=== PATIENT | female | born 1980 | race Caucasian/White ===

== ENCOUNTER 2020-01-16 09:31 | Emergency (ER) | payer SELFPAY ==
[~2020-01-16] VITALS: Ht 175.3 cm; Wt 65.8 kg
--- NOTE | 2020-01-16 10:01 | Emergency Department Note ---
History of Present Illnes History of Present Illness Chief Complaint: General Medicine Complaints History of Present Illness This is a 39 year old female to the ED with complaints of 3 days of cough sore throat shortness of breath. . Chief Complaint Comment PATIENT IN FROM HOME WITH COMPLAINTS OF SORE THROAT X 3 DAYS AND COUGH; DENIES FEVER OR SHORTNESS OF BREATH. O2 SATS 100% ON ROOM AIR, RATES PAIN 7/10, APPEARS IN NO DISTRESS Historian: Patient Arrival Mode: Car Onset (how long ago): day(s) Severity: mild Duration (how long): day(s) Timing of current episode: constant Chronicity: new Relieving factors: none Exacerbating factors: none Past Medical/Family History Physician Review I have reviewed the patient's past medical and family history. Any updates have been documented here. Past Medical History Recent Fever: No Clinical Suspicion of Infectio: No New/Unexplained Change in Ment: No Past Medical History: None Past Surgical History: None Social History Physically hurt or threatened: No Review of Systems Review of Systems Constitutional: Reports no symptoms EENTM: Reports no symptoms Cardiovascular: Reports no symptoms Respiratory: Reports no symptoms Gastrointestinal: Reports no symptoms Genitourinary: Reports no symptoms Musculoskeletal: Reports no symptoms Integumentary: Reports no symptoms Neurological: Reports no symptoms Psychological: Reports no symptoms Endocrine: Reports no symptoms Hematological/Lymphatic: Reports no symptoms Physical Exam Related Data Allergies: Coded Allergies: No Known Allergies (Unverified , 01/16/20) Triage Vital Signs Vital Signs Date Time Temp Pulse Resp B/P (MAP) Pulse Ox O2 Delivery O2 Flow Rate FiO2 01/16/20 09:47 98.4 65 20 114/75 100 Room Air Vital signs reviewed: Yes Physical Exam CONSTITUTIONAL Constitutional: Present well-developed, Present well-nourished HENT HENT: Present normocephalic, Present atraumatic, Present oropharynx clear/moist, Present oropharynx normal, Present nose normal; Absent oropharyngeal exudate, Absent pharynx abnormal, Absent erythema HENT L/R: Present left ext ear normal, Present right ext ear normal EYES Eyes: Reports PERRL, Reports conjunctivae normal NECK Neck: Present ROM normal PULMONARY Pulmonary: Present effort normal, Present breath sounds normal CARDIOVASCULAR Cardiovascular: Present regular rhythm, Present heart sounds normal, Present capillary refill normal, Present normal rate GASTROINTESTINAL Abdominal: Present soft, Present nontender, Present bowel sounds normal GENITOURINARY Genitourinary: Present exam deferred SKIN Skin: Present warm, Present dry MUSCULOSKELETAL Musculoskeletal: Present ROM normal NEUROLOGICAL Neurological: Present alert, Present oriented x 3, Present no gross motor or sensory deficits PSYCHOLOGICAL Psychological: Present mood/affect normal, Present judgement normal Assessment & Plan Medical Decision Making MDM No history of immunocompromise. Nontoxic appearance. Patient euvolemic with no trismus. No airway compromise. Able to tolerate PO. Given History and Exam I have low suspicion for this presentation being caused by ROOF DESIGNER, RPA, Ludwigs, Epiglottitis or Bacterial Tracheitis, EBV, acute HIV, Strep throat. Rx: Patient discharged doxycycline 100 mg by mouth twice a day Disposition: Discharge home with prompt outpatient PCP follow up; return precautions discussed. HPI Denies cough. No measured fevers. No steroid use or immunosuppressive state. No pus from mouth. Tolerating secretions. Otherwise well with no changes to vision, no dysphonia, no dysphagia. Assessment & Plan Final Impression: (1) Strep pharyngitis Depart Disposition: HOME, SELF-CARE Last Vital Signs Date Time Temp Pulse Resp B/P (MAP) Pulse Ox O2 Delivery O2 Flow Rate FiO2 01/16/20 09:47 98.4 65 20 114/75 100 Room Air Home Meds Active Scripts Acetaminophen/Codeine* (TYLENOL # 3*) 1 Ea Tab, 1 TAB PO Q8HR PRN for COUGH, #12 Prov:CONCHA ULRICH DO 01/16/20 Prednisone (PREDNISONE) 20 Mg Tab, 40 MG PO DAILY, #5 TAB Prov:CONCHA ULRICH DO 01/16/20 Doxycycline Hyclate (DOXYCYCLINE HYCLATE) 100 Mg Capsule, 100 MG PO BID, #20 CAP Prov:CONCHA ULRICH DO 01/16/20 CONCHA ULRICH DO Jan 16, 2020 10:01
[2020-01-16] MEDS ORDERED: PREDNISONE20 MG PO (10:12)
[2020-01-16] MEDS ORDERED: TYLENOL # 31 EA PO (10:12)
[2020-01-16] MEDS ORDERED: DOXYCYCLINE HY100 MG PO (10:12)
--- OUTSIDE RECORDS SUMMARY | 2020-01-16 10:37 | XMS REPORT | Clinical Summary ---
Author Author [facility] Address Unknown Phone Unavailable Care Team Providers Care Commissioning Editor Name Role Phone Asked, No Pcp PCP Unavailable Allergies No Known Active Allergies Medications Not on file Active Problems Not on file Social History Date Tobacco Use Types Packs/Day Years Used Never Assessed Sex Assigned at Date Recorded Not on file Last Filed Vital Signs Not on file Plan of Treatment Not on file Results Not on fileafter 01/15/2019 Insurance Type Payer Benefit Subscriber ID Effective Phone Address Plan / Dates Group [facility] - [id number] [facility] Advance Directives For more information, please contact: [phone] Patient Filling Machine Tender Explanation Type Date Recorded Advance Directives, 06/17/2018 9:32 PM Living Will 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
== END 2020-01-16 10:22 | disposition home or self-care (01) ==
LOC: ER 10:22
DX: J02.0 Streptococcal pharyngitis (principal); R05 Cough; R06.02 Shortness of breath
CPT/HCPCS: 99283

== ENCOUNTER 2020-08-04 15:37 | Emergency (ER) | payer SELFPAY ==
[~2020-08-04] VITALS: Ht 175.3 cm; Wt 72.6 kg
[~2020-08-04 15:37] MED LIST: DOXYCYCLINE HY100 MG PO; PREDNISONE20 MG PO; TYLENOL # 31 EA PO
[2020-08-04] MEDS ORDERED: PANTOPRAZOLE 40 MG 10ML VIAL IV STA (16:17)
[2020-08-04] MEDS ORDERED: FAMOTIDINE 20 MG/2 ML VIAL IV STA (16:17)
[2020-08-04] MEDS ORDERED: ONDANSETRON HCL INJ 2MG/ML 2ML 2 MG/ML VIAL IV STA (16:17)
[2020-08-04] MEDS ORDERED: SODIUM CHLORIDE 0.9% 1000ML 1,000 ML IV ONE (16:30)
[2020-08-04 16:31] LABS: BASOPHILS % 0.6 % (0.0-1.0); EOSINOPHILS # (AUTO) 0.2 (0.0-0.4); EOSINOPHILS % 4.6 % (0.0-6.0); HEMATOCRIT 41.5 % (34.2-44.1); HEMOGLOBIN 13.9 g/dL (12.0-16.0); LYMPHOCYTES # (AUTO) 0.5 (1.0-3.2); LYMPHOCYTES % 10.8 % (18.0-39.1); MEAN CORPUSCULAR HEMOGLOBIN 30.2 pg (28-32); MEAN CORPUSCULAR HGB CONC 33.5 g/dL (31-35); MONOCYTES # (AUTO) 0.2 (0.2-0.8); MONOCYTES % 4.8 % (4.4-11.3); NEUTROPHILS # (AUTO) 3.9 (2.1-6.9); NEUTROPHILS % 78.6 % (38.7-80.0); PLATELET COUNT 179 x10e3/uL (140-360); RED BLOOD COUNT 4.61 x10e6/uL (3.6-5.1)
[2020-08-04 16:57] LABS: ALANINE AMINOTRANSFERASE 21 IU/L (0-55); ALBUMIN 3.7 g/dL (3.5-5.0); ALBUMIN/GLOBULIN RATIO 0.8 (0.8-2.0); ALKALINE PHOSPHATASE 67 IU/L (40-150); ANION GAP 14.1 mmol/L (8-16); BLOOD UREA NITROGEN 15 mg/dL (7-26); BUN/CREATININE RATIO 17 (6-25); CALCIUM 8.7 mg/dL (8.4-10.2); CARBON DIOXIDE 21 mmol/L (22-29); CHLORIDE 104 mmol/L (98-107); CREATINE KINASE 43 IU/L (29-168); CREATININE, SERUM 0.88 mg/dL (0.57-1.11); EST GLOMERULAR FILTRATION RATE > 60 ML/MIN (60-); GLUCOSE 97 mg/dL (74-118); POTASSIUM 4.1 mmol/L (3.5-5.1); SODIUM 135 mmol/L (136-145)
[2020-08-04 16:58] LABS: AMYLASE 50 U/L (25-125); LIPASE 14 U/L (8-78)
[2020-08-04] MEDS ORDERED: DICYCLOMINE HCL 20 MG/2 ML VIAL IM ONE (17:45)
[2020-08-04] MEDS ORDERED: SODIUM CHLORIDE 0.9% 50ML 50 ML ONE (18:17)
[2020-08-04] MEDS ORDERED: IOPAMIDOL 370 MG/ML 200 ML INFUS..BTL INJ ONE (18:17)
[2020-08-04 19:34] VITALS: BP 135/65
== END 2020-08-04 19:37 | disposition home or self-care (01) ==
LOC: ER 16:00
DX: R10.13 Epigastric pain (principal); R11.2 Nausea with vomiting, unspecified; R19.7 Diarrhea, unspecified; R51.9 Headache, unspecified
CPT/HCPCS: 36415; 74177; 76705; 80053; 82150; 82550; 82553; 83690; 84484; 84702; 85025; 99284; C9113; J0500; J2405; J7030; Q9967

== ENCOUNTER 2024-03-30 21:20 | Emergency (ER) | payer SELFPAY ==
[~2024-03-30] VITALS: Ht 175.3 cm; Wt 72.6 kg
[2024-03-30 21:34] VITALS: PULSE 81; RESP 18; TEMP 98.9; O2SAT 100
[2024-03-30] MEDS ORDERED: IBUPROFEN 600 MG TAB ONE (21:45)
[2024-03-30] MEDS: IBUPROFEN 600 MG TAB PO STA (21:54)
== END 2024-03-31 00:30 | disposition left against medical advice (07) ==
LOC: ER 03-31 00:17
DX: K08.89 Other specified disorders of teeth and supporting structures (principal)